=== PATIENT | female | born 1970 | race Caucasian/White ===

== ENCOUNTER 2018-05-06 11:46 | Emergency (ER) | payer BC ==
[~2018-05-06 11:46] MED LIST: Sodium Chloride 0.9% 1,000 ML BAG ONE
[2018-05-06] MEDS ORDERED: HYDROmorphone 0.5 MG/0.5 ML SYRINGE ONE (12:21)
[2018-05-06 12:24] LABS: Bilirubin Negative (Negative); Blood, Urine Large (Negative); Clarity Clear (Clear); Glucose, Urine (Dipstick) >=1000 mg/dL (Negative); Leukocyte Negative (Negative); Nitrite Negative (Negative); Protein, Urine (Dipstick) 30 mg/dL (Neg-Trace); Urobilinogen 0.2 mg/dL (0.2-1.0); pH, Urine 5.5 (5.0-9.0)
[2018-05-06 12:27] LABS: #Basophils 0.1 thou/uL (0.0-0.2); #Eosinphils 0.2 thou/uL (0.0-0.7); #Lymphocytes 2.7 thou/uL (1.20-3.40); #Monocytes 0.7 thou/uL (0.11-0.59); #Neutrophils 7.7 thou/uL (1.40-6.50); %Basophils 0.9 % (0.0-1.0); %Lymphocytes 23.7 % (21.0-51.0); %Monocytes 5.7 % (0.0-10.0); %Neutrophils 67.8 % (42.0-75.0); Hemoglobin 14.8 g/dL (12.0-16.0); Mean Corpuscular Volume 85.8 fL (78.0-98.0); Mean Platelet Volume 5.6 fL (7.4-10.4); Platelet Count 293 thou/uL (130-400); RBC Distribution Width 11.5 % (11.5-14.5); Red Blood Cell (RBC) Count 4.93 mill/uL (4.20-5.40); White Blood Cell (WBC) Count 11.3 thou/uL (4.8-10.8)
[2018-05-06 12:29] LABS: Pregnancy Test - Urine (BHCG) Negative (Negative); Pregu Control Background? CLEAR/WHITE (CLR/WHITE); Pregu Control Bar Appear? YES (CONTROL BAR)
[2018-05-06 12:35] LABS: Bacteria/HPF Rare-Few HPF (None Seen); RBC/HPF GREATER THAN 50-TNTC HPF (0-3)
[2018-05-06 12:44] LABS: ALT (SGPT) 24 U/L (8-55); AST (SGOT) 17 U/L (5-34); Albumin 3.9 g/dL (3.5-5.0); Anion Gap 13 mmol/L (10-20); BUN (Urea Nitrogen) 10 mg/dL (7.0-18.7); Bilirubin, Total 0.4 mg/dL (0.2-1.2); Calc. Creatinine Clearance 0 mL/min (70-130); Calcium 8.9 mg/dL (7.8-10.44); Carbon Dioxide 29 mmol/L (22-29); Chloride 100 mmol/L (98-107); Estimated GFR-MDRD 89; Globulin 2.9 g/dL (2.4-3.5); Glucose 225 mg/dL (70-105); Potassium 3.8 mmol/L (3.5-5.1); Protein, Total 6.8 g/dL (6.0-8.3); Sodium 138 mmol/L (136-145)
[2018-05-06] MEDS ORDERED: Ketorolac Tromethamine 30 MG/ML VIAL ONE (12:55)
--- NOTE | 2018-05-06 13:35 | CT ---
ABDOMEN CT WITHOUT CONTRAST PELVIC CT WITHOUT CONTRAST: Date: 05/06/18 HISTORY: Abdominal pain. COMPARISON: None. FINDINGS: ABDOMEN CT: Lung bases are clear. Normal heart size. No pericardial fluid. Descending thoracic aorta and abdomina l aorta have normal caliber. No periaortic fat stranding. Heterogeneous attenuation of the liver may be due to areas of fatty infiltration and fatty sparing. S pleen, pancreas, and adrenal glands are unremarkable. Evaluation of the solid organs is limited by la ck of IV contrast. Unremarkable gallbladder. No gastrohepatic, retrocrural, or periportal lymphadenopathy. No mesenteric mass, lymphadenopathy, free air, or free fluid. Bilateral nonobstructing intrarenal calculi measuring 1-2 mm. With regard to the left kidney, no evid ence of obstructive uropathy. There is mild right intra and extrarenal collecting system obstruction to the level of the right ureteropelvic junction. There is a solitary calculus in the proximal right ureter measuring 6.0 mm in craniocaudal dimension. Distal to this calculus, the remainder of the righ t ureter is decompressed. Limited evaluation of the alimentary canal by lack of oral contrast. No evidence of bowel obstruction . Ileocecal junction is normal. Appendix is normal in caliber. Scattered fecal material in nondistend ed, nondilated colon. PELVIC CT: Uterus and right adnexal structures are unremarkable. There is an exophytic hypodensity emanating fro m the left adnexa measuring 5.4 x 4.2 cm, with an attenuation coefficient of 10 Hounsfield units, sug gesting a left ovarian cyst. No calcification in urinary bladder. No lytic or blastic lesions. IMPRESSION: 1. Right side obstructive uropathy secondary to a 4-6 mm calculus in the proximal right ureter at th e level of the right ureteropelvic junction. 2. Left adnexal cyst is favored. Follow-up ultrasound in 6 weeks is recommended to ensure resolution . POS: SALAZAR
[2018-05-06 13:46] LABS: Alkaline Phosphatase 73 U/L (40-150)
== END 2018-05-06 13:50 | disposition home or self-care (01) ==
LOC: MADERS 11:46
DX: N20.0 Calculus of kidney (principal)
CPT/HCPCS: 74176; 80053; 81003; 81015; 81025; 85025; 96361; 96374; 96375; J1170; J1885; J7050